=== PATIENT | male | born 1955 | race Hispanic/Latino ===

== ENCOUNTER → 2022-03-15 | Outpatient (CLI) | payer MEDICARE | LOC: MRI 09:38 | PROVIDERS: ATTEND Family Medicine | DX: M25.562 Pain in left knee (principal); S83.412A Sprain of medial collateral ligament of left knee, initial encounter; R26.81 Unsteadiness on feet ==

== ENCOUNTER 2023-05-31 19:22 | Observation (INO) | payer MEDICARE, OTHER ==
[~2023-05-31] VITALS: Ht 170.2 cm; Wt 78.5 kg
[2023-05-31] MEDS ORDERED: ONDANSETRON HCL INJ 2MG/ML 2ML 2 MG/ML VIAL IV STA (19:35)
[2023-05-31] MEDS ORDERED: FAMOTIDINE 20 MG/2 ML VIAL IV STA (19:35)
[2023-05-31] MEDS ORDERED: FAMOTIDINE 20 MG/2 ML VIAL IV ONE (19:48)
[2023-05-31 19:51] LABS: BASOPHILS % 0.2 % (0.0-1.0); EOSINOPHILS % 0.2 % (0.0-6.0); HEMATOCRIT 41.5 % (38.2-49.6); HEMOGLOBIN 14.9 g/dL (14.0-18.0); LYMPHOCYTES % 13.2 % (18.0-39.1); MEAN CORPUSCULAR HEMOGLOBIN 31.7 pg (28-32); MEAN CORPUSCULAR HGB CONC 35.9 g/dL (31-35); MEAN CORPUSCULAR VOLUME 88.3 fL (81-99); MONOCYTES # (AUTO) 0.6 (0.2-0.8); MONOCYTES % 4.2 % (4.4-11.3); NEUTROPHILS # (AUTO) 12.5 (2.1-6.9); NEUTROPHILS % 81.9 % (38.7-80.0); PLATELET COUNT 221 x10e3/uL (140-360); RED CELL DISTRIBUTION WIDTH 13.2 % (11.7-14.4); WHITE BLOOD COUNT 15.31 x10e3/uL (4.8-10.8)
[2023-05-31 19:53] LABS: CLARITY,URINE SL CLOUDY (CLEAR); COLOR,URINE YELLOW (YELLOW); KETONES,URINE 1+ (NEGATIVE); LEUKOCYTE ESTERASE ,URINE NEGATIVE (NEGATIVE); NITRITE,URINE NEGATIVE (NEGATIVE); PROTEIN,URINE DIPSTICK TRACE (NEGATIVE); URINE UROBILINOGEN 1 mg/dL (0.2 - 1)
[2023-05-31 20:03] LABS: AMORPHOUS SEDIMENT,URINE MODERATE (FEW); BACTERIA,URINE FEW /HPF
[2023-05-31 20:09] LABS: ALBUMIN 4.8 g/dL (3.5-5.0); ALBUMIN/GLOBULIN RATIO 1.5 (0.8-2.0); ANION GAP 16.8 mmol/L (8-16); CALCIUM 10.2 mg/dL (8.4-10.2); CREATININE, SERUM 1.05 mg/dL (0.72-1.25); POTASSIUM 3.8 mmol/L (3.5-5.1)
[2023-05-31] MEDS ORDERED: IOPAMIDOL 370 MG/ML 100 ML INFUS..BTL INJ ONE (20:24)
[2023-05-31] MEDS ORDERED: ONDANSETRON HCL INJ 2MG/ML 2ML 2 MG/ML VIAL IV PRN (21:30)
[2023-05-31] MEDS: SODIUM CHLORIDE 0.9% 1000ML 1,000 ML IV SCH ×2 (21:59→23:14)
[2023-05-31] MEDS: Morphine 4mg INJECTION 4 MG/ML INJ IV PRN (22:15)
[2023-05-31] MEDS ORDERED: SODIUM CHLORIDE 0.9% 250ML IRRIG IR SCH (22:30)
[2023-05-31 23:30] VITALS: BP 125/74; PULSE 86; RESP 23; TEMP 98.7; O2SAT 96
[2023-06-01] VITALS (8 sets, daily range): BP systolic 124–142; BP diastolic 69–79; PULSE 64–86; RESP 16–23; TEMP 97.5–98.7; O2SAT 96–99
[2023-06-01] MEDS ORDERED: HYDROCHLOROTH12.5 MG PO (00:59)
[2023-06-01] MEDS ORDERED: LISINOPRIL10 MG PO (00:59)
[2023-06-01] MEDS ORDERED: ATORVASTATIN CA10 MG PO (00:59)
[2023-06-01] MEDS ORDERED: AMLODIPINE BESYL5 MG PO (00:59)
[2023-06-01] MEDS: Morphine 4mg INJECTION 4 MG/ML INJ IV PRN (03:30)
[2023-06-01 07:24] LABS: BASOPHILS % 0.2 % (0.0-1.0); HEMATOCRIT 39.8 % (38.2-49.6); HEMOGLOBIN 13.9 g/dL (14.0-18.0); LYMPHOCYTES # (AUTO) 1.9 (1.0-3.2); LYMPHOCYTES % 16.2 % (18.0-39.1); MEAN CORPUSCULAR HEMOGLOBIN 31.2 pg (28-32); MEAN CORPUSCULAR HGB CONC 34.9 g/dL (31-35); MEAN CORPUSCULAR VOLUME 89.2 fL (81-99); MONOCYTES # (AUTO) 0.8 (0.2-0.8); MONOCYTES % 6.5 % (4.4-11.3); NEUTROPHILS % 76.8 % (38.7-80.0); PLATELET COUNT 205 x10e3/uL (140-360); RED BLOOD COUNT 4.46 x10e6/uL (4.3-5.7); RED CELL DISTRIBUTION WIDTH 13.4 % (11.7-14.4); WHITE BLOOD COUNT 11.75 x10e3/uL (4.8-10.8)
[2023-06-01 08:03] LABS: ALBUMIN/GLOBULIN RATIO 1.3 (0.8-2.0); ANION GAP 13.7 mmol/L (8-16); CALCIUM 9.3 mg/dL (8.4-10.2); CREATININE, SERUM 0.96 mg/dL (0.72-1.25); POTASSIUM 3.7 mmol/L (3.5-5.1)
[2023-06-01] MEDS: AMLODIPINE BESYLATE 5 MG TAB PO SCH (08:35)
[2023-06-01] MEDS: LISINOPRIL 20 MG TAB PO SCH (08:35)
[2023-06-01] MEDS ORDERED: ATORVASTATIN 10 MG TAB PO SCH (09:00)
[2023-06-01] MEDS ORDERED: HYDROCHLOROTHIAZIDE 25 MG TAB PO SCH (09:00)
[2023-06-02 00:56] VITALS: BP 117/64; PULSE 60; RESP 18; TEMP 97.7; O2SAT 96
[2023-06-02 05:04] VITALS: BP 115/68; PULSE 57; RESP 16; TEMP 97; O2SAT 100
[2023-06-02 08:12] VITALS: BP 123/73; PULSE 59; RESP 18; TEMP 98.5; O2SAT 99
[2023-06-02 08:37] VITALS: BP 123/73; PULSE 59; RESP 18; TEMP 98.5; O2SAT 99
[2023-06-02 10:32] VITALS: BP 127/72
[2023-06-02] MEDS: AMLODIPINE BESYLATE 5 MG TAB PO SCH (10:32)
[2023-06-02] MEDS: LISINOPRIL 20 MG TAB PO SCH (10:32)
[2023-06-02] MEDS ORDERED: CIPRO500 MG PO (11:23)
[2023-06-02] MEDS ORDERED: FLAGYL375 MG PO (11:25)
[2023-06-02] MEDS ORDERED: ONDANSETRON ODT4 MG SL (11:28)
== END 2023-06-02 11:55 | disposition home or self-care (01) ==
LOC: ER 19:35 → ERHOLD 21:57 → INTOOBSV 21:57 → MED/SURG2 22:47
PROVIDERS: ADMIT Internal Medicine; ATTEND Internal Medicine
DX: K56.609 Unspecified intestinal obstruction, unspecified as to partial versus complete obstruction (principal); K52.9 Noninfective gastroenteritis and colitis, unspecified; I10 Essential (primary) hypertension; E78.5 Hyperlipidemia, unspecified; Z11.52 Encounter for screening for COVID-19; Z79.899 Other long term (current) drug therapy
CPT/HCPCS: 36415 ×2; 74018; 74019; 74177; 80053 ×2; 81001; 83690; 85025 ×2; 93005; 96361; 99284; G0378 ×3; J2270 ×2; J2405 ×2; J2543 ×3; J7030; Q9967; U0002

== ENCOUNTER 2023-06-11 15:50 | Emergency (ER) | payer MEDICARE, OTHER ==
[~2023-06-11] VITALS: Ht 322.6 cm; Wt 78.5 kg
[~2023-06-11 15:50] MED LIST: AMLODIPINE BESYL5 MG PO; ATORVASTATIN CA10 MG PO; CIPRO500 MG PO; FLAGYL375 MG PO; HYDROCHLOROTH12.5 MG PO; LISINOPRIL10 MG PO; ONDANSETRON ODT4 MG SL
[2023-06-11 15:55] VITALS: O2SAT 99
[2023-06-11 16:27] LABS: BASOPHILS % 0.2 % (0.0-1.0); EOSINOPHILS # (AUTO) 0.1 (0.0-0.4); EOSINOPHILS % 1.2 % (0.0-6.0); HEMATOCRIT 41.8 % (38.2-49.6); HEMOGLOBIN 15.3 g/dL (14.0-18.0); LYMPHOCYTES # (AUTO) 2.5 (1.0-3.2); LYMPHOCYTES % 29.7 % (18.0-39.1); MEAN CORPUSCULAR HEMOGLOBIN 31.9 pg (28-32); MEAN CORPUSCULAR HGB CONC 36.6 g/dL (31-35); MEAN CORPUSCULAR VOLUME 87.3 fL (81-99); MONOCYTES # (AUTO) 0.8 (0.2-0.8); MONOCYTES % 9.1 % (4.4-11.3); NEUTROPHILS # (AUTO) 5.1 (2.1-6.9); NEUTROPHILS % 59.6 % (38.7-80.0); PLATELET COUNT 236 x10e3/uL (140-360); RED BLOOD COUNT 4.79 x10e6/uL (4.3-5.7); RED CELL DISTRIBUTION WIDTH 13.2 % (11.7-14.4); WHITE BLOOD COUNT 8.48 x10e3/uL (4.8-10.8)
[2023-06-11 16:44] LABS: POTASSIUM 4.2 mmol/L (3.5-5.1)
[2023-06-11 16:45] LABS: ALBUMIN 4.3 g/dL (3.5-5.0); ALBUMIN/GLOBULIN RATIO 1.4 (0.8-2.0); ANION GAP 12.2 mmol/L (8-16); CALCIUM 9.4 mg/dL (8.4-10.2); CREATININE, SERUM 1.28 mg/dL (0.72-1.25)
== END 2023-06-11 18:47 | disposition home or self-care (01) ==
LOC: ER 16:09
DX: R20.0 Anesthesia of skin (principal); R53.1 Weakness; I10 Essential (primary) hypertension; E78.5 Hyperlipidemia, unspecified
CPT/HCPCS: 36415; 70450; 71045; 80053; 83735; 84484; 85025; 93005; 99284